=== PATIENT | female | born 1950 | race Caucasian/White ===

== ENCOUNTER 2018-11-08 17:52 | Emergency (ER) | payer MEDICARE ==
[~2018-11-08] VITALS: Ht 165.1 cm; Wt 83.0 kg
[~2018-11-08 17:52] MED LIST: ANTIVERT/2525 MG PO; MEDROL DOSEPAK4 MG PO
[2018-11-08] MEDS ORDERED: Tobrex Ophth S2.5 ML OPH (18:25)
[2019-01-16] MEDS ORDERED: VALTREX1000 MG PO (10:56)
== END 2018-11-08 18:50 | disposition home or self-care (01) ==
LOC: ED
DX: H10.9 Unspecified conjunctivitis (principal); R09.89 Other specified symptoms and signs involving the circulatory and respiratory systems

== ENCOUNTER 2018-12-17 14:04 | Emergency (ER) | payer MEDICARE ==
[~2018-12-17] VITALS: Ht 165.1 cm; Wt 84.8 kg
[~2018-12-17 14:04] MED LIST changes: +Tobrex Ophth S2.5 ML OPH
[2018-12-17] MEDS ORDERED: VIBRAMYCIN100 MG PO (15:44)
[2018-12-17] MEDS ORDERED: MEDROL DOSEPAK4 MG PO (15:44)
[2019-01-16] MEDS ORDERED: VALTREX1000 MG PO (10:56)
== END 2018-12-17 15:51 | disposition home or self-care (01) ==
LOC: ED 14:04
DX: J44.1 Chronic obstructive pulmonary disease with (acute) exacerbation (principal); F17.200 Nicotine dependence, unspecified, uncomplicated; Z79.2 Long term (current) use of antibiotics

== ENCOUNTER 2019-05-09 11:48 | Inpatient (IN) | payer MEDICARE, MEDICAID ==
[~2019-05-09] VITALS: Ht 165.1 cm; Wt 81.2 kg
[~2019-05-09 11:48] MED LIST changes: +VALTREX1000 MG PO; +VIBRAMYCIN100 MG PO
[2019-05-09 11:51] VITALS: BP 150/64
[2019-05-09 12:48] LABS: BASO % 0.5 % (0.0-1.0); EOS % 0.3 % (1.0-4.0); HEMATOCRIT 45.9 % (37.0-47.0); HEMOGLOBIN 15.4 g/dl (12.0-16.0); LYMPH # 1.2 10*3/uL (1.3-4.4); LYMPH % 19.3 % (27.0-41.0); MEAN CELL VOLUME 93.3 fl (81.0-99.0); MEAN CORPUSCULAR HGB 31.3 pg (27.0-31.0); MEAN CORPUSCULAR HGB CONC 33.6 g/dl (33.0-37.0); MEAN PLATELET VOLUME 10.8 fl (9.6-12.3); MONO # 0.7 10*3/uL (0.1-1.0); MONO % 10.6 % (3.0-9.0); NEUT # 4.2 10*3/uL (2.3-7.9); NEUT % 69.1 % (47.0-73.0); PLATELET COUNT AUTOMATED 173 10*3/uL (130-400); RED BLOOD COUNT 4.92 10*6/uL (4.10-5.10); RED CELL DISTRI WIDTH 12.3 % (0-14.5); WHITE BLOOD COUNT 6.1 10*3/uL (4.8-10.8)
[2019-05-09 13:01] LABS: ACT PARTIAL THROMBO TIME 27.3 SECONDS (20.0-32.1); INTERNATIONAL NORM RATIO 0.9 (2.0-3.5)
[2019-05-09 13:04] LABS: BILIRUBIN 1+ (NEGATIVE); BLOOD NEGATIVE (NEGATIVE); CLARITY SL CLOUDY (CLEAR); COLOR YELLOW (YELLOW); GLUCOSE NEGATIVE (NEGATIVE); KETONE NEGATIVE (NEGATIVE); LEUKO ESTERASE NEGATIVE (NEGATIVE); NITRITE NEGATIVE (NEGATIVE); PH 6.5 (5.0-9.0)
[2019-05-09 13:04] LABS: ALBUMIN 3.3 gm/dl (3.1-4.5); ALKALINE PHOSPHATASE 71 U/L (45-117); BUN 9 mg/dl (7-24); CHLORIDE 107 mmol/L (98-107); CREATININE 0.79 mg/dL (0.55-1.02); LIPASE 177 U/L (73-393); POTASSIUM 3.3 mmol/L (3.5-5.1); SGOT/AST 26 IU/L (3-35); SGPT/ALT 25 U/L (12-78); SODIUM 140 mmol/L (136-145); TOTAL PROTEIN 7.1 gm/dL (6.4-8.2); TROPONIN I < 0.015 ng/ml (<0.045)
[2019-05-09 13:18] LABS: BACTERIA 2+
[2019-05-09 13:19] LABS: WBC 0-2 wbc/hpf (0-5)
[2019-05-09 13:36] VITALS: BP 122/61
[2019-05-09 13:59] VITALS: BP 132/61
--- NOTE | 2019-05-09 13:59 | NUR ---
Time: 1358 A 68 year old FEMALE admitted to 5E under services of DR. DIAN RAMIRES,[facility]. Pt. arrived via bed from ER. Chief complaint: WEAKNESS. KIT TRIPLETT A
[2019-05-09] MEDS ORDERED: LISINOPRIL10 M1 PO (14:18)
[2019-05-09] MEDS ORDERED: ZOCOR40 MG PO (14:18)
[2019-05-09] MEDS ORDERED: SUNMARK OMEPRAZ20 M1 PO (14:21)
[2019-05-09] MEDS ORDERED: FISH OIL 500 M1 EACH PO (14:21)
[2019-05-09] MEDS ORDERED: ASPIRIN CHEWABL81 MG PO (14:21)
[2019-05-09] MEDS ORDERED: CELEXA40 MG PO (14:22)
[2019-05-09] MEDS ORDERED: TRAZODONE50 MG PO (14:22)
--- NOTE | 2019-05-09 14:47 | NUR ---
MED REC UPDATED BASED ON PT RECALL
[2019-05-09 16:00] VITALS: BP 123/62
--- NOTE | 2019-05-09 16:18 | NUR ---
PT RESTING IN BED. NO DISTRESS NOTED. FAMILY AT BEDSIDE WILL MONITOR
--- NOTE | 2019-05-09 19:20 | NUR ---
ARRIVED ON SHIFT, INTRODUCED TO PATIENT, REPORT RECEIVED, NO NEEDS VOICED AT THIS TIME, WHITE BOARD UPDATED.
[2019-05-09 20:00] VITALS: BP 108/49
--- NOTE | 2019-05-09 20:43 | NUR ---
24 HR chart check completed.
[2019-05-10] VITALS: BP 131/60
[2019-05-10 06:36] LABS: HEMATOCRIT 44.4 % (37.0-47.0); HEMOGLOBIN 14.4 g/dl (12.0-16.0); LYMPH # 0.7 10*3/uL (1.3-4.4); LYMPH % 10.9 % (27.0-41.0); MEAN CELL VOLUME 94.3 fl (81.0-99.0); MEAN CORPUSCULAR HGB 30.6 pg (27.0-31.0); MEAN CORPUSCULAR HGB CONC 32.4 g/dl (33.0-37.0); MEAN PLATELET VOLUME 11.1 fl (9.6-12.3); MONO # 0.1 10*3/uL (0.1-1.0); MONO % 1.7 % (3.0-9.0); NEUT # 5.2 10*3/uL (2.3-7.9); NEUT % 86.7 % (47.0-73.0); PLATELET COUNT AUTOMATED 193 10*3/uL (130-400); RED BLOOD COUNT 4.71 10*6/uL (4.10-5.10); RED CELL DISTRI WIDTH 12.1 % (0-14.5)
[2019-05-10 06:52] LABS: ALKALINE PHOSPHATASE 67 U/L (45-117); BUN 13 mg/dl (7-24); CHLORIDE 105 mmol/L (98-107); CREATININE 1.06 mg/dL (0.55-1.02); POTASSIUM 3.4 mmol/L (3.5-5.1); SGOT/AST 14 IU/L (3-35); SGPT/ALT 25 U/L (12-78); SODIUM 138 mmol/L (136-145); TOTAL PROTEIN 6.5 gm/dL (6.4-8.2)
--- NOTE | 2019-05-10 07:58 | NUR ---
PT RESTING IN BED. NO DISTRESS NOTED. WILL MONITOR
[2019-05-10 08:00] VITALS: BP 124/59
[2019-05-10 12:00] VITALS: BP 111/50
[2019-05-10 16:00] VITALS: BP 118/52
--- NOTE | 2019-05-10 17:54 | NUR ---
DR VILLALOBOS CONSULT CALLED TO [facility] SPOKE WITH KEYLA
--- NOTE | 2019-05-10 19:20 | NUR ---
ARRIVED ON SHIFT, INTRODUCED TO PATIENT, BEDSIDE REPORT RECEIVED, NO NEEDS VOICED AT THIS TIME, WHITE BOARD UPDATED.
[2019-05-10 20:00] VITALS: BP 97/44
--- NOTE | 2019-05-10 20:10 | NUR ---
6 MINUTE WALK. PT WAS WALKED ON ROOM AIR. SATS STARTED AT 92%,BP111/52, HR75. SATS CAME UP TO 94%, NEVER WENT BELOW 90%. ENDED AT HER ROOM STILL ON ROOM AIR SATS 92%, BP 117/49, HR 100
--- NOTE | 2019-05-10 22:13 | NUR ---
24 HR chart check completed.
[2019-05-11] VITALS: BP 115/52
--- NOTE | 2019-05-11 00:31 | NUR ---
Patient sleeping. Respirations relaxed and easy. Siderails up x2, [place] on, bed in low position, call light within reach. PRANAV POOLE
[2019-05-11 06:40] LABS: HEMATOCRIT 43.6 % (37.0-47.0); HEMOGLOBIN 14.1 g/dl (12.0-16.0); MEAN CORPUSCULAR HGB 30.7 pg (27.0-31.0); MEAN CORPUSCULAR HGB CONC 32.3 g/dl (33.0-37.0); MEAN PLATELET VOLUME 11.4 fl (9.6-12.3); PLATELET COUNT AUTOMATED 203 10*3/uL (130-400); RED BLOOD COUNT 4.59 10*6/uL (4.10-5.10); RED CELL DISTRI WIDTH 12.4 % (0-14.5); WHITE BLOOD COUNT 16.3 10*3/uL (4.8-10.8)
[2019-05-11 06:55] LABS: BUN 16 mg/dl (7-24); CHLORIDE 110 mmol/L (98-107); CHOLESTEROL 180 mg/dL (<200); CREATININE 0.88 mg/dL (0.55-1.02); TRIGLYCERIDES 204 mg/dl (<150); VLDL CHOLESTEROL 41 mg/dL (6-40)
[2019-05-11 06:58] LABS: HDL CHOLESTEROL 27 mg/dl (40-60); LDL CHOLESTEROL 112 mg/dL (9-159)
[2019-05-11 07:09] LABS: SODIUM 140 mmol/L (136-145)
[2019-05-11 07:11] LABS: POTASSIUM 4.7 mmol/L (3.5-5.1)
[2019-05-11 07:39] LABS: TOTAL CELLS COUNTED 100 #CELLS
[2019-05-11 07:40] LABS: PLATELET SUFFICIENCY NORMAL (NORMAL)
--- NOTE | 2019-05-11 07:55 | NUR ---
Nursing screen received and chart reviewed. Patient admitted with COPD and unsteady gait. If patient should have a decline in ADLs or safety in functional mobility then refer to OT. THank you. Bonny Dozier OTR/L
[2019-05-11 08:00] VITALS: BP 114/47
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
[2019-05-11 12:00] VITALS: BP 118/50
--- NOTE | 2019-05-11 14:15 | NUR ---
PHYSICAL THERAPY Screen received and chart reviewed, pt from home per nsg notes/H&P pt very weak with unsteady gait would recomend Physical Therapy consult as/when pt medically appropriate, thank you. Valerie Ga PT
[2019-05-11 16:00] VITALS: BP 112/57
[2019-05-11 20:00] VITALS: BP 133/72
--- NOTE | 2019-05-11 20:00 | NUR ---
PATIENT IS RESTING IN BED WITH EASY AND REGULAR RESPERS ON ROOM AIR. ASSESSMENT IS COMPLETE WITH NO C/O OR S/S OF DISTRESS NOTED AT THIS TIME. BED IS LOW, LOCKED, AND CALL LIGHT IS WITHIN REACH. WILL CONTINUE TO MONITOR, SEE SHIFT ASSESSMENT.
--- NOTE | 2019-05-11 21:27 | NUR ---
Hep Lock discontinued in right arm. Site symptomatic. Pressure applied. Sterile dressing applied. IV started right hand with #22 angiocath after 1 attempt. The IV site was prepped with Chloraprep. Heparin lock attached. Sterile dressing applied. Patient tolerated precedure well. Procedure performed according to [facility] policy & procedure. JARETT PIÑA
[2019-05-12] VITALS: BP 132/75
--- NOTE | 2019-05-12 01:10 | NUR ---
24 HR. CHART CHECK COMPLETE.
[2019-05-12 06:38] LABS: BASO % 0.1 % (0.0-1.0); HEMATOCRIT 44.9 % (37.0-47.0); HEMOGLOBIN 14.4 g/dl (12.0-16.0); LYMPH # 0.9 10*3/uL (1.3-4.4); LYMPH % 8.1 % (27.0-41.0); MEAN CELL VOLUME 94.9 fl (81.0-99.0); MEAN CORPUSCULAR HGB 30.4 pg (27.0-31.0); MEAN CORPUSCULAR HGB CONC 32.1 g/dl (33.0-37.0); MEAN PLATELET VOLUME 11.6 fl (9.6-12.3); MONO # 0.1 10*3/uL (0.1-1.0); NEUT # 9.9 10*3/uL (2.3-7.9); NEUT % 89.6 % (47.0-73.0); PLATELET COUNT AUTOMATED 239 10*3/uL (130-400); RED BLOOD COUNT 4.73 10*6/uL (4.10-5.10); RED CELL DISTRI WIDTH 12.6 % (0-14.5); WHITE BLOOD COUNT 11.1 10*3/uL (4.8-10.8)
[2019-05-12 06:46] LABS: BUN 19 mg/dl (7-24); CHLORIDE 107 mmol/L (98-107); POTASSIUM 4.4 mmol/L (3.5-5.1); SODIUM 141 mmol/L (136-145)
[2019-05-12 08:00] VITALS: BP 117/58
--- NOTE | 2019-05-12 10:30 | NUR ---
Spa Experience Coordinator in to see patient. No new needs or request at this time. She denies any home needs. When medically stable she will be discharged to home. Per multidisciplinary discharge planning meeting she will be discharged to home today.
[2019-05-12 12:00] VITALS: BP 121/53
[2019-05-12] MEDS ORDERED: PREDNISONE10 MG PO (14:37)
[2019-05-12] MEDS ORDERED: DOXYCYCLINE100 MG PO (14:37)
--- NOTE | 2019-05-12 15:04 | NUR ---
Discharge instructions reviewed with patient/family. Patient receptive and verbalizes understanding. Follow-up care arranged. Written instructions given to patient/family. WANG EVANS
[2019-05-12] MEDS ORDERED: EXELON1 EACH T (16:43)
== END 2019-05-12 17:47 | disposition home or self-care (01) | DRG 191 ==
LOC: ED 11:48 → 5E 13:37
PROVIDERS: Nurse Practitioner Family; Student in an Organized Health Care Education/Training Program; ADMIT Internal Medicine
DX: J44.1 Chronic obstructive pulmonary disease with (acute) exacerbation (principal); E44.0 Moderate protein-calorie malnutrition; E87.6 Hypokalemia; N18.3 Chronic kidney disease, stage 3 (moderate); E87.8 Other disorders of electrolyte and fluid balance, not elsewhere classified; K21.9 Gastro-esophageal reflux disease without esophagitis; E78.2 Mixed hyperlipidemia; D72.810 Lymphocytopenia; R73.9 Hyperglycemia, unspecified; G30.0 Alzheimer's disease with early onset; F02.80 Dementia in other diseases classified elsewhere, unspecified severity, without behavioral disturbance, psychotic disturbance, mood disturbance, and anxiety; F32.9 Major depressive disorder, single episode, unspecified; I12.9 Hypertensive chronic kidney disease with stage 1 through stage 4 chronic kidney disease, or unspecified chronic kidney disease; R41.9 Unspecified symptoms and signs involving cognitive functions and awareness; E55.9 Vitamin D deficiency, unspecified; F17.210 Nicotine dependence, cigarettes, uncomplicated; Z71.6 Tobacco abuse counseling; Z80.1 Family history of malignant neoplasm of trachea, bronchus and lung; Z84.89 Family history of other specified conditions; Z79.82 Long term (current) use of aspirin; Z79.899 Other long term (current) drug therapy; Z68.29 Body mass index [BMI] 29.0-29.9, adult

== ENCOUNTER 2019-05-30 11:21 | Emergency (ER) | payer MEDICARE, MEDICAID ==
[~2019-05-30] VITALS: Ht 165.1 cm; Wt 83.9 kg
[~2019-05-30 11:21] MED LIST changes: +ASPIRIN CHEWABL81 MG PO; +CELEXA40 MG PO; +DOXYCYCLINE100 MG PO; +EXELON1 EACH T; +FISH OIL 500 M1 EACH PO; +LISINOPRIL10 M1 PO; +PREDNISONE10 MG PO; +SUNMARK OMEPRAZ20 M1 PO; +TRAZODONE50 MG PO; +ZOCOR40 MG PO
[2019-05-30] MEDS ORDERED: PREDNISONE20 M1 PO (12:11)
[2019-05-30] MEDS ORDERED: VALTREX1000 MG PO (12:11)
== END 2019-05-30 12:32 | disposition home or self-care (01) ==
LOC: ED 11:21
DX: B02.7 Disseminated zoster (principal); J44.9 Chronic obstructive pulmonary disease, unspecified; I10 Essential (primary) hypertension; K21.9 Gastro-esophageal reflux disease without esophagitis; E78.00 Pure hypercholesterolemia, unspecified; Z91.040 Latex allergy status; Z79.2 Long term (current) use of antibiotics; Z79.899 Other long term (current) drug therapy; Z79.82 Long term (current) use of aspirin

== ENCOUNTER 2020-06-18 13:30 | Emergency (ER) | payer MEDICARE, MEDICAID ==
[~2020-06-18] VITALS: Ht 165.1 cm; Wt 83.0 kg
[~2020-06-18 13:30] MED LIST changes: +PREDNISONE20 M1 PO
[2020-06-18] MEDS ORDERED: NAPROSYN500 MG PO (14:50)
== END 2020-06-18 15:02 | disposition home or self-care (01) ==
LOC: ED 13:30
DX: M54.5 Low back pain (principal); J44.9 Chronic obstructive pulmonary disease, unspecified; K21.9 Gastro-esophageal reflux disease without esophagitis; E78.5 Hyperlipidemia, unspecified; N18.9 Chronic kidney disease, unspecified; F17.210 Nicotine dependence, cigarettes, uncomplicated; Z91.040 Latex allergy status; Z79.899 Other long term (current) drug therapy; Z79.82 Long term (current) use of aspirin

== ENCOUNTER → 2020-07-13 | Outpatient (CLI) | payer OTHER ==
[~2020-07-13] MED LIST changes: +NAPROSYN500 MG PO
== END | disposition home or self-care (01) ==
LOC: MAMMO 14:18
PROVIDERS: ATTEND Internal Medicine
DX: Z12.31 Encounter for screening mammogram for malignant neoplasm of breast (principal); N64.89 Other specified disorders of breast

== ENCOUNTER → 2020-08-18 | Outpatient (CLI) | payer OTHER | END | disposition home or self-care (01) | LOC: US 08-09 10:00 → MAMMO 00:06 | PROVIDERS: ATTEND Internal Medicine | DX: R92.8 Other abnormal and inconclusive findings on diagnostic imaging of breast (principal) ==

== ENCOUNTER 2020-09-04 15:50 | Emergency (ER) | payer OTHER ==
[~2020-09-04] VITALS: Ht 165.1 cm; Wt 84.8 kg
[2020-09-04 16:57] LABS: BASO % 0.3 % (0.0-1.0); EOS # 0.1 10*3/uL (0.0-0.4); EOS % 1.4 % (1.0-4.0); HEMATOCRIT 47.6 % (37.0-47.0); LYMPH # 2.5 10*3/uL (1.3-4.4); LYMPH % 26.9 % (27.0-41.0); MEAN CELL VOLUME 94.1 fl (81.0-99.0); MEAN PLATELET VOLUME 10.7 fl (9.6-12.3); MONO # 0.4 10*3/uL (0.1-1.0); MONO % 4.7 % (3.0-9.0); NEUT # 6.3 10*3/uL (2.3-7.9); NEUT % 66.6 % (47.0-73.0); PLATELET COUNT AUTOMATED 265 10*3/uL (130-400); RED BLOOD COUNT 5.06 10*6/uL (4.10-5.10); RED CELL DISTRI WIDTH 12.5 % (0-14.5); WHITE BLOOD COUNT 9.4 10*3/uL (4.8-10.8)
[2020-09-04 17:07] LABS: ACT PARTIAL THROMBO TIME 27.3 SECONDS (20.0-32.1)
[2020-09-04 17:13] LABS: ALBUMIN 3.5 gm/dl (3.1-4.5); ALKALINE PHOSPHATASE 92 U/L (45-117); BUN 9 mg/dl (7-24); CHLORIDE 107 mmol/L (98-107); CREATININE 0.86 mg/dL (0.55-1.02); LIPASE 196 U/L (73-393); POTASSIUM 3.6 mmol/L (3.5-5.1); SGOT/AST 11 IU/L (3-35); SGPT/ALT 24 U/L (12-78); SODIUM 141 mmol/L (136-145); TOTAL PROTEIN 6.9 gm/dL (6.4-8.2)
[2020-09-04 17:14] LABS: BILIRUBIN Negative (Negative); BLOOD Negative (Negative); CLARITY Clear (Clear); COLOR Yellow (Yellow); GLUCOSE Negative (Negative); KETONE Negative (Negative); LEUKO ESTERASE Negative (Negative); NITRITE Negative (Negative); PH 7.5 (4.5-8.0); SPECIFIC GRAVITY 1.015 (1.001-1.030)
[2020-09-04 17:17] LABS: TROPONIN I < 0.015 ng/ml (<0.045)
[2020-09-04 17:23] LABS: BACTERIA 1+; RBC 0-2 rbc/hpf (0-2); WBC 0-2 wbc/hpf (0-5)
== END 2020-09-04 18:20 | disposition home or self-care (01) ==
LOC: ED 15:50
PROVIDERS: Physician Assistant
DX: R42 Dizziness and giddiness (principal); R51.9 Headache, unspecified; R11.0 Nausea; R53.1 Weakness; J44.9 Chronic obstructive pulmonary disease, unspecified; I10 Essential (primary) hypertension; K21.9 Gastro-esophageal reflux disease without esophagitis; E78.00 Pure hypercholesterolemia, unspecified; F17.200 Nicotine dependence, unspecified, uncomplicated; Z91.040 Latex allergy status; Z79.2 Long term (current) use of antibiotics; Z79.899 Other long term (current) drug therapy; Z79.82 Long term (current) use of aspirin

== ENCOUNTER 2020-11-26 17:23 | Emergency (ER) | payer OTHER ==
[~2020-11-26] VITALS: Ht 165.1 cm; Wt 83.9 kg
== END 2020-11-26 20:19 | disposition left against medical advice (07) ==
LOC: ED 17:23
DX: R21 Rash and other nonspecific skin eruption (principal); L29.9 Pruritus, unspecified; Z53.21 Procedure and treatment not carried out due to patient leaving prior to being seen by health care provider

== ENCOUNTER 2021-10-03 15:28 | Emergency (ER) | payer OTHER ==
[~2021-10-03] VITALS: Ht 165.1 cm; Wt 82.6 kg
[~2021-10-03 15:28] MED LIST changes: +ATORVASTATIN CA20 M1 PO; +BREO ELLIPTA 21 EACH INH; +CITALOPRAM40 MG PO; +GABAPENTIN100 M2 PO; +MEMANTINE HCL E28 MG PO; +OMEPRAZOLE40 MG PO; +VENTOLIN 02.5 MG/3 M INH
[2021-10-03 16:29] LABS: BASO # 0.1 10*3/uL (0.0-0.1); BASO % 0.5 % (0.0-1.0); EOS # 0.1 10*3/uL (0.0-0.4); EOS % 1.3 % (1.0-4.0); HEMATOCRIT 46.5 % (37.0-47.0); LYMPH # 2.9 10*3/uL (1.3-4.4); LYMPH % 30.1 % (27.0-41.0); MEAN CELL VOLUME 92.8 fl (81.0-99.0); MEAN CORPUSCULAR HGB 29.7 pg (27.0-31.0); MONO # 0.6 10*3/uL (0.1-1.0); MONO % 6.2 % (3.0-9.0); NEUT % 61.6 % (47.0-73.0); PLATELET COUNT AUTOMATED 264 10*3/uL (130-400); RED BLOOD COUNT 5.01 10*6/uL (4.10-5.10); RED CELL DISTRI WIDTH 12.7 % (0-14.5); WHITE BLOOD COUNT 9.7 10*3/uL (4.8-10.8)
[2021-10-03 16:43] LABS: ACT PARTIAL THROMBO TIME 28.7 SECONDS (20.0-32.1)
[2021-10-03 16:56] LABS: ALKALINE PHOSPHATASE 90 U/L (45-117); BUN 9 mg/dl (7-24); CHLORIDE 109 mmol/L (98-107); CREATININE 0.88 mg/dL (0.55-1.02); POTASSIUM 3.5 mmol/L (3.5-5.1); SGOT/AST 12 IU/L (3-35); SGPT/ALT 15 U/L (12-78); SODIUM 141 mmol/L (136-145); TOTAL PROTEIN 6.2 gm/dL (6.4-8.2)
== END 2021-10-03 20:10 | disposition home or self-care (01) ==
LOC: ED 15:28
PROVIDERS: Emergency Medicine
DX: S46.912A Strain of unspecified muscle, fascia and tendon at shoulder and upper arm level, left arm, initial encounter (principal); S46.911A Strain of unspecified muscle, fascia and tendon at shoulder and upper arm level, right arm, initial encounter; S16.1XXA Strain of muscle, fascia and tendon at neck level, initial encounter; S09.90XA Unspecified injury of head, initial encounter; Z91.040 Latex allergy status; Z79.899 Other long term (current) drug therapy; Z79.82 Long term (current) use of aspirin; W17.89XA Other fall from one level to another, initial encounter; Y93.89 Activity, other specified; Y92.89 Other specified places as the place of occurrence of the external cause; Y99.8 Other external cause status

== ENCOUNTER → 2022-01-04 | Outpatient (CLI) | payer OTHER ==
[2022-01-04 14:33] LABS: BASO # 0.1 10*3/uL (0.0-0.1); BASO % 0.5 % (0.0-1.0); RED CELL DISTRI WIDTH 13.2 % (0-14.5)
[2022-01-04 15:03] LABS: EOS # 0.2 10*3/uL (0.0-0.4); EOS % 1.2 % (1.0-4.0); LYMPH # 3.1 10*3/uL (1.3-4.4); LYMPH % 24.3 % (27.0-41.0); MEAN CELL VOLUME 93.1 fl (81.0-99.0); MEAN CORPUSCULAR HGB 29.9 pg (27.0-31.0); MEAN CORPUSCULAR HGB CONC 32.1 g/dl (33.0-37.0); MEAN PLATELET VOLUME 11.2 fl (9.6-12.3); MONO # 0.7 10*3/uL (0.1-1.0); MONO % 5.4 % (3.0-9.0); NEUT # 8.8 10*3/uL (2.3-7.9); NEUT % 68.4 % (47.0-73.0); PLATELET COUNT AUTOMATED 281 10*3/uL (130-400); RED BLOOD COUNT 5.05 10*6/uL (4.10-5.10); WHITE BLOOD COUNT 12.9 10*3/uL (4.8-10.8)
[2022-01-04 15:12] LABS: CHLORIDE 106 mmol/L (98-107); POTASSIUM 3.8 mmol/L (3.5-5.1); SODIUM 141 mmol/L (136-145)
[2022-01-04 15:28] LABS: ALKALINE PHOSPHATASE 99 U/L (45-117); BUN 7 mg/dl (7-24); CREATININE 0.85 mg/dL (0.55-1.02); SGOT/AST 14 IU/L (3-35); SGPT/ALT 14 U/L (12-78); TOTAL PROTEIN 7.1 gm/dL (6.4-8.2)
[2022-01-04 16:13] LABS: VITAMIN D, 25-HYDROXY 39.9 ng/mL (30-100)
== END | disposition home or self-care (01) ==
LOC: RAD/SH 13:00 → RAD 13:52 → RAD/SH 13:52 → LAB 13:52
PROVIDERS: ATTEND Internal Medicine Nephrology
DX: R53.83 Other fatigue (principal); R13.11 Dysphagia, oral phase; E55.9 Vitamin D deficiency, unspecified

== ENCOUNTER → 2023-01-21 | Outpatient (CLI) | payer OTHER | END | disposition home or self-care (01) | LOC: RAD 10:27 | PROVIDERS: ATTEND Internal Medicine Nephrology | DX: R26.81 Unsteadiness on feet (principal) ==

== ENCOUNTER → 2023-01-22 | Outpatient (CLI) | payer OTHER | END | disposition home or self-care (01) | LOC: LAB 09:39 | PROVIDERS: ATTEND Internal Medicine Nephrology | DX: R26.81 Unsteadiness on feet (principal); B83.9 Helminthiasis, unspecified ==

== ENCOUNTER 2023-07-16 13:55 | Emergency (ER) | payer OTHER ==
[~2023-07-16] VITALS: Ht 160 cm; Wt 81.6 kg
[2023-07-16 14:41] LABS: BASO # 0.1 10*3/uL (0.0-0.1); BASO % 0.6 % (0.0-1.0); EOS # 0.2 10*3/uL (0.0-0.4); HEMATOCRIT 47.7 % (37.0-47.0); LYMPH # 4.1 10*3/uL (1.3-4.4); LYMPH % 34.9 % (27.0-41.0); MEAN CELL VOLUME 93.5 fl (81.0-99.0); MEAN CORPUSCULAR HGB 30.8 pg (27.0-31.0); MEAN CORPUSCULAR HGB CONC 32.9 g/dl (33.0-37.0); MEAN PLATELET VOLUME 10.5 fl (9.6-12.3); MONO # 0.5 10*3/uL (0.1-1.0); NEUT # 6.8 10*3/uL (2.3-7.9); NEUT % 58.2 % (47.0-73.0); PLATELET COUNT AUTOMATED 293 10*3/uL (130-400); RED CELL DISTRI WIDTH 12.3 % (0-14.5); WHITE BLOOD COUNT 11.6 10*3/uL (4.8-10.8)
[2023-07-16 14:52] LABS: ACT PARTIAL THROMBO TIME 26.2 SECONDS (20.0-32.1)
[2023-07-16 14:58] LABS: ALKALINE PHOSPHATASE 84 U/L (46-116); BUN 9 mg/dl (9-23); CHLORIDE 106 mmol/L (98-107); POTASSIUM 3.1 mmol/L (3.4-5.1); SGPT/ALT 15 U/L (5-49); TOTAL PROTEIN 6.3 gm/dL (6.0-8.0)
[2023-07-16] MEDS ORDERED: PREDNISONE50 MG PO (16:27)
[2023-07-16] MEDS ORDERED: PROVENTIL HFA6.7 GM INH (16:27)
[2023-07-16] MEDS ORDERED: VIBRAMYCIN100 MG PO (16:27)
[2023-07-16] MEDS ORDERED: AMOX-CLAV 875-1 EACH PO (16:56)
== END 2023-07-16 17:37 | disposition home or self-care (01) ==
LOC: ED 13:55
PROVIDERS: Family Medicine
DX: J44.1 Chronic obstructive pulmonary disease with (acute) exacerbation (principal); Z20.822 Contact with and (suspected) exposure to COVID-19; J18.9 Pneumonia, unspecified organism; R10.2 Pelvic and perineal pain; I10 Essential (primary) hypertension; K21.9 Gastro-esophageal reflux disease without esophagitis; E78.00 Pure hypercholesterolemia, unspecified; F03.90 Unspecified dementia, unspecified severity, without behavioral disturbance, psychotic disturbance, mood disturbance, and anxiety; Z91.040 Latex allergy status; Z98.890 Other specified postprocedural states

== ENCOUNTER → 2023-07-19 | Outpatient (CLI) | payer OTHER ==
[~2023-07-19] MED LIST changes: +AMOX-CLAV 875-1 EACH PO; +PREDNISONE50 MG PO; +PROVENTIL HFA6.7 GM INH
== END | disposition home or self-care (01) ==
LOC: US 06-27 10:30
PROVIDERS: ATTEND Internal Medicine Nephrology
DX: M16.12 Unilateral primary osteoarthritis, left hip (principal); K76.0 Fatty (change of) liver, not elsewhere classified; M25.852 Other specified joint disorders, left hip

== ENCOUNTER → 2023-07-25 | Outpatient (CLI) | payer OTHER | END | disposition home or self-care (01) | LOC: MAMMO 06-27 11:30 | PROVIDERS: ATTEND Internal Medicine Nephrology | DX: Z12.31 Encounter for screening mammogram for malignant neoplasm of breast (principal) ==

== ENCOUNTER → 2023-10-16 | Outpatient (CLI) | payer OTHER | END | disposition home or self-care (01) | LOC: RAD 13:32 | PROVIDERS: ATTEND Internal Medicine Nephrology | DX: M19.012 Primary osteoarthritis, left shoulder (principal); M25.812 Other specified joint disorders, left shoulder ==

== ENCOUNTER → 2023-11-13 | Outpatient (CLI) | payer OTHER | END | disposition home or self-care (01) | LOC: ORTHO 01:45 | PROVIDERS: ATTEND Orthopaedic Surgery | DX: M47.817 Spondylosis without myelopathy or radiculopathy, lumbosacral region (principal); M51.37 Other intervertebral disc degeneration, lumbosacral region; M48.07 Spinal stenosis, lumbosacral region ==

== ENCOUNTER → 2023-12-18 | Outpatient (CLI) | payer OTHER | END | disposition home or self-care (01) | LOC: CT 12-09 15:00 | PROVIDERS: ATTEND Orthopaedic Surgery | DX: M47.816 Spondylosis without myelopathy or radiculopathy, lumbar region (principal); M46.06 Spinal enthesopathy, lumbar region ==

== ENCOUNTER 2024-01-14 14:04 | Inpatient (IN) | payer OTHER ==
[~2024-01-14] VITALS: Ht 167.6 cm; Wt 84.4 kg
[2024-01-14 14:40] VITALS: BP 133/63
[2024-01-14] MEDS ORDERED: SODIUM CHLORIDE 0.9% 1,000 ML IV ONE (15:20)
[2024-01-14 15:43] LABS: BASO # 0.1 10*3/uL (0.0-0.1); BASO % 0.5 % (0.0-1.0); EOS # 0.1 10*3/uL (0.0-0.4); EOS % 0.8 % (1.0-4.0); HEMATOCRIT 47.3 % (37.0-47.0); LYMPH # 2.4 10*3/uL (1.3-4.4); LYMPH % 24.5 % (27.0-41.0); MEAN CELL VOLUME 92.7 fl (81.0-99.0); MEAN CORPUSCULAR HGB 30.2 pg (27.0-31.0); MEAN CORPUSCULAR HGB CONC 32.6 g/dl (33.0-37.0); MEAN PLATELET VOLUME 11.2 fl (9.6-12.3); MONO # 0.5 10*3/uL (0.1-1.0); MONO % 5.1 % (3.0-9.0); NEUT # 6.8 10*3/uL (2.3-7.9); NEUT % 68.8 % (47.0-73.0); PLATELET COUNT AUTOMATED 296 10*3/uL (130-400); RED CELL DISTRI WIDTH 12.2 % (0-14.5); WHITE BLOOD COUNT 9.9 10*3/uL (4.8-10.8)
[2024-01-14 15:53] LABS: ACT PARTIAL THROMBO TIME 27.2 SECONDS (20.0-32.1)
[2024-01-14 16:06] LABS: ALKALINE PHOSPHATASE 98 U/L (46-116); BUN 11 mg/dl (9-23); CHLORIDE 109 mmol/L (98-107); POTASSIUM 3.5 mmol/L (3.4-5.1); SGPT/ALT 24 U/L (5-49); TOTAL PROTEIN 6.4 gm/dL (6.0-8.0)
[2024-01-14 16:17] LABS: BILIRUBIN Negative (Negative); BLOOD Negative (Negative); CLARITY Cloudy (Clear); COLOR Dark Yellow (Yellow); GLUCOSE Negative (Negative); KETONE Negative (Negative); LEUKO ESTERASE Negative (Negative); NITRITE Negative (Negative); SPECIFIC GRAVITY 1.025 (1.001-1.030)
[2024-01-14 16:28] LABS: BACTERIA TRACE; MUCOUS 2+; RBC 0-2 rbc/hpf (0-2)
[2024-01-14 19:52] VITALS: BP 128/74
[2024-01-14] MEDS ORDERED: OXYBUTYNIN5 MG PO (21:20)
[2024-01-14] MEDS ORDERED: MONTELUKAST SOD10 MG PO (21:21)
[2024-01-14] MEDS ORDERED: Albuterol Sulf/Ipratropium 3 ML VIAL NEB SCH (21:55)
[2024-01-14] MEDS ORDERED: GABAPENTIN 100 MG CAP PO SCH (22:00)
[2024-01-14] MEDS ORDERED: Memantine Hydrochloride 10 MG TAB PO SCH (22:00)
[2024-01-15 00:33] VITALS: BP 133/88
[2024-01-15 04:22] VITALS: BP 142/68
[2024-01-15] MEDS ORDERED: OMEPRAZOLE 20 MG CAP PO SCH (06:00)
[2024-01-15 06:45] LABS: BASO # 0.1 10*3/uL (0.0-0.1); BASO % 0.6 % (0.0-1.0); EOS # 0.2 10*3/uL (0.0-0.4); EOS % 1.6 % (1.0-4.0); HEMATOCRIT 45.7 % (37.0-47.0); LYMPH # 2.8 10*3/uL (1.3-4.4); LYMPH % 29.3 % (27.0-41.0); MEAN CELL VOLUME 92.7 fl (81.0-99.0); MEAN CORPUSCULAR HGB 29.8 pg (27.0-31.0); MEAN CORPUSCULAR HGB CONC 32.2 g/dl (33.0-37.0); MEAN PLATELET VOLUME 11.4 fl (9.6-12.3); MONO # 0.5 10*3/uL (0.1-1.0); MONO % 5.7 % (3.0-9.0); NEUT # 5.9 10*3/uL (2.3-7.9); NEUT % 62.6 % (47.0-73.0); PLATELET COUNT AUTOMATED 288 10*3/uL (130-400); RED BLOOD COUNT 4.93 10*6/uL (4.10-5.10); RED CELL DISTRI WIDTH 12.3 % (0-14.5); WHITE BLOOD COUNT 9.5 10*3/uL (4.8-10.8)
[2024-01-15 07:15] LABS: ALKALINE PHOSPHATASE 93 U/L (46-116); BUN 8 mg/dl (9-23); CHLORIDE 109 mmol/L (98-107); POTASSIUM 2.9 mmol/L (3.4-5.1); SGPT/ALT 23 U/L (5-49); TOTAL PROTEIN 6.1 gm/dL (6.0-8.0)
[2024-01-15] MEDS ORDERED: LORazepam 0.5 MG TAB PO ONE (08:55)
[2024-01-15] MEDS ORDERED: Oxybutynin Chloride 5 MG TAB PO SCH (10:00)
[2024-01-15] MEDS ORDERED: Rivastigmine Tartrate 4.6 MG/24 HR PATCH T SCH (10:00)
[2024-01-15] MEDS ORDERED: ASPIRIN, CHEWABLE 81 MG TAB PO SCH (10:00)
[2024-01-15] MEDS ORDERED: LISINOPRIL 10 MG TAB PO SCH (10:00)
[2024-01-15] MEDS ORDERED: POTASSIUM CHLORIDE 20 MEQ TAB PO ONE (11:10)
[2024-01-15] MEDS ORDERED: Dexamethasone Sodium Phospha 4 MG/ML VIAL IV ONE (16:05)
[2024-01-15] MEDS ORDERED: Montelukast Sodium 10 MG TAB PO SCH (18:00)
[2024-01-15 19:30] VITALS: BP 123/35
== END 2024-01-15 20:36 | disposition short-term general hospital (02) | DRG 640 ==
LOC: ED 14:04 → EDHOLD 19:31
PROVIDERS: Internal Medicine; ADMIT Internal Medicine; ATTEND Internal Medicine
DX: E86.0 Dehydration (principal); G93.6 Cerebral edema; Z68.45 Body mass index [BMI] 70 or greater, adult; R62.7 Adult failure to thrive; N18.9 Chronic kidney disease, unspecified; J44.9 Chronic obstructive pulmonary disease, unspecified; K21.9 Gastro-esophageal reflux disease without esophagitis; E78.5 Hyperlipidemia, unspecified; E55.9 Vitamin D deficiency, unspecified; G93.9 Disorder of brain, unspecified; Z91.040 Latex allergy status; Z91.09 Other allergy status, other than to drugs and biological substances; Z79.899 Other long term (current) drug therapy; Z86.16 Personal history of COVID-19; Z79.01 Long term (current) use of anticoagulants; Z79.2 Long term (current) use of antibiotics

== ENCOUNTER 2024-01-30 15:30 | Emergency (ER) | payer OTHER ==
[~2024-01-30] VITALS: Ht 165.1 cm; Wt 77.1 kg
[~2024-01-30 15:30] MED LIST changes: +LEVETIRACETAM500 MG PO; +MONTELUKAST SOD10 MG PO; +OXYBUTYNIN5 MG PO
[2024-01-30 16:23] LABS: BASO % 0.2 % (0.0-1.0); EOS # 0.2 10*3/uL (0.0-0.4); EOS % 0.8 % (1.0-4.0); HEMATOCRIT 43.5 % (37.0-47.0); LYMPH # 2.7 10*3/uL (1.3-4.4); LYMPH % 11.8 % (27.0-41.0); MEAN CELL VOLUME 94.6 fl (81.0-99.0); MEAN CORPUSCULAR HGB 30.4 pg (27.0-31.0); MEAN CORPUSCULAR HGB CONC 32.2 g/dl (33.0-37.0); MEAN PLATELET VOLUME 10.3 fl (9.6-12.3); MONO # 1.4 10*3/uL (0.1-1.0); MONO % 6.1 % (3.0-9.0); NEUT # 18.2 10*3/uL (2.3-7.9); NEUT % 80.5 % (47.0-73.0); PLATELET COUNT AUTOMATED 277 10*3/uL (130-400); WHITE BLOOD COUNT 22.6 10*3/uL (4.8-10.8)
[2024-01-30 16:37] LABS: ACT PARTIAL THROMBO TIME 27.6 SECONDS (20.0-32.1)
[2024-01-30 16:47] LABS: ALKALINE PHOSPHATASE 72 U/L (46-116); BUN 15 mg/dl (9-23); CHLORIDE 108 mmol/L (98-107); POTASSIUM 3.8 mmol/L (3.4-5.1); SGPT/ALT 27 U/L (5-49); TOTAL PROTEIN 5.7 gm/dL (6.0-8.0)
[2024-01-30] MEDS ORDERED: VIBRAMYCIN100 MG PO (17:43)
[2024-01-30] MEDS ORDERED: DOCUSATE SODIU1 EAC1 PO (17:56)
[2024-01-30] MEDS ORDERED: MIRALAX17 GM PO (17:57)
[2024-01-30] MEDS ORDERED: ZINC SULFATE 1566 MG PO (17:59)
[2024-01-30] MEDS ORDERED: TYLENOL325 M1 PO (18:01)
[2024-01-30] MEDS ORDERED: VENT7GM INH (18:02)
[2024-01-30] MEDS ORDERED: BISACODYL10 MG R (18:05)
[2024-01-30 19:56] LABS: BILIRUBIN Negative (Negative); BLOOD Negative (Negative); CLARITY Clear (Clear); COLOR Yellow (Yellow); GLUCOSE Negative (Negative); KETONE Negative (Negative); LEUKO ESTERASE 1+ (Negative); NITRITE Negative (Negative); UROBILINOGEN 0.2 E.U./dl (0.0-1.0)
[2024-01-30 20:27] LABS: MUCOUS 1+
[2024-01-30] MEDS ORDERED: Dexamethasone Sodium Phospha 20 MG/5 ML VIAL IV ONE (21:30)
[2024-01-30] MEDS ORDERED: LEVETIRACETAM IN NACL (ISO-OS) 100 ML IV ONE (21:30)
== END 2024-01-30 22:59 | disposition short-term general hospital (02) ==
LOC: ED 15:30
PROVIDERS: Emergency Medicine
DX: R53.1 Weakness (principal); D72.829 Elevated white blood cell count, unspecified; R10.32 Left lower quadrant pain; R26.2 Difficulty in walking, not elsewhere classified; J44.9 Chronic obstructive pulmonary disease, unspecified; K21.9 Gastro-esophageal reflux disease without esophagitis; E78.00 Pure hypercholesterolemia, unspecified; E78.5 Hyperlipidemia, unspecified; E87.6 Hypokalemia; I10 Essential (primary) hypertension; F03.90 Unspecified dementia, unspecified severity, without behavioral disturbance, psychotic disturbance, mood disturbance, and anxiety; Z91.040 Latex allergy status; Z98.890 Other specified postprocedural states